=== PATIENT | male | born 1990 | race Caucasian/White ===

== ENCOUNTER 2021-05-03 17:14 | Emergency (ER) | payer OTHER ==
[2021-05-03] MEDS ORDERED: TETANUS & DIPHTHERIA TOX,ADULT 0.5 ML VIAL ONE (18:15)
[2021-05-03] MEDS ORDERED: LIDOCAINE 1% 20 ML MDV ONE (19:02)
--- NOTE | 2021-05-03 19:36 | ER ---
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 Coronavirus screen: Client denies travel out of the [place] in the last 14 days. Ebola Screen: No symptoms or risks identified at this time. Complicating Factors: There are no complicating factors for this patient. Initial Sepsis Screen: Does the patient meet any 2 criteria? No. Patient's initial sepsis screen is negative. Does the patient have a suspected source of infection? No. Patient's initial sepsis screen is negative. Risk Assessment: Do you want to hurt yourself or someone else? Patient reports no desire to harm self or others. Onset of symptoms was May 03, 2021. 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 - Social history:: Smoking status: Patient denies any tobacco usage or history of. Screenin:55 Abuse screen: Denies threats or abuse. Denies injuries from another. Nutritional tr6 screening: No deficits noted. Tuberculosis screening: No symptoms or risk factors identified. Fall Risk None identified. Assessment: 17:54 General: Appears in no apparent distress. comfortable, Behavior is calm, cooperative, tr6 appropriate for age. Pain:. Neuro: No deficits noted. Cardiovascular: No deficits noted. Respiratory: No deficits noted. GI: No deficits noted. : No deficits noted. EENT: No deficits noted. Derm: No deficits noted. Musculoskeletal: No deficits noted. Injury Description: Laceration sustained to right hand. 19:58 Injury Description: Laceration is jagged, 2.6 to 7.5 cm long, not bleeding. [id number] Vital Signs: 17:38 BP 133 / 75; Pulse 66; Resp 18; Temp 98.5; Pulse Ox 98% on R/A; Weight 65.77 kg; Height ph 5 ft. 11 in. (180.34 cm); Pain 2/10; 17:38 Body Mass Index 20.22 (65.77 kg, 180.34 cm) ED Course: 17:23 Patient arrived in ED. as 17:39 Triage completed. ph 17:39 Arm band placed on Patient placed in waiting room, Patient notified of wait time. 17:51 [facility] 17:51 Sylvester Crooks MD is Attending Physician. [facility] 17:51 Adele Salmon, DONNA is Primary Nurse. tr6 17:55 Resting quietly. Awaiting ED provider evaluation. tr6 17:55 Patient has correct armband on for positive identification. Bed in low position. Call tr6 light in reach. Side rails up X 1. Door closed. Noise minimized. Visitors limited. Lights dimmed. Moved to private room. 17:55 No provider procedures requiring assistance completed. tr6 19:58 Patient did not have IV access during this emergency room visit. 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 Exp: tr6 01/05/2023. Lot #: [id number]. } Route: IM; Site: left deltoid; 19:16 Follow up: Response: No adverse reaction [facility] 18:47 Drug: Lidocaine (1 %) 20 ml {Note: adminitered by MARTÍNEZ Munoz.} Volume: 20 ml; tr6 Route: Infiltration; Outcome: 19:36 Discharge ordered by . [facility] 19:57 Discharged to home ambulatory, with family. [facility] 19:57 Condition: good 19:57 Discharge instructions given to patient, family, Instructed on discharge instructions, follow up and referral plans. wound care, Demonstrated understanding of instructions, follow-up care, wound care. 19:58 Patient left the ED. [facility] Signatures: Carl Munoz PA PA jmm Martinez, Amelia as Hall, Patricia, RN RN Werner Shultz RN RN [facility] Adele Salmon, DONNA RN tr
--- NOTE | 2021-05-03 19:36 | EDPHYS ---
Physician Documentation [facility] Name: Yaakov Lomeli Age: 31 yrs Sex: Male : 1990 Arrival Date: 05/03/2021 Time: 17:23 Bed 15 Private MD: ED Physician Sylvester Crooks HPI: 05/03 18:20 This 31 yrs old Male presents to ER via Ambulatory with complaints of jmm Laceration To Hand. 18:20 The patient has a laceration related to: working, occurred at work, and there are no jmm complicating factors. The injury was accidental. Onset: The symptoms/episode began/occurred acutely. It is unknown whether or not the patient has had similar symptoms in the past. Patient states cutting his left hand while at work. Denies other injury. Patient is not UTD on tetanus immunizations. . 19:33 The laceration(s) is(are) located on the left hand. 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 - Social history:: Smoking status: Patient denies any tobacco usage or history of. ROS: 18:20 Constitutional: Negative for fever, chills, and weight loss, Cardiovascular: Negative jmm for chest pain, palpitations, and edema, Respiratory: Negative for shortness of breath, cough, wheezing, and pleuritic chest pain. 18:20 Skin: Positive for laceration(s). 18:20 All other systems are negative. Exam: 18:20 Constitutional: This is a well developed, well nourished patient who is awake, alert, jmm and in no acute distress. Head/Face: atraumatic. Eyes: EOMI, no conjunctival erythema appreciated ENT: Moist Mucus Membranes Neck: Trachea midline, Supple Chest/axilla: Normal chest wall appearance and motion. Cardiovascular: Regular rate and rhythm. No edema appreciated Respiratory: Normal respirations, no respiratory distress appreciated Abdomen/GI: Non distended, soft Back: Normal ROM 18:20 Musculoskeletal/extremity: FROM appreciated to the right hand, < 2 sec dist cap refill, compartments are soft, NVI. 18:20 Skin: 3 cm laceration noted to the palmar surface of the right hand. 18:20 Neuro: Orientation: is normal, Mentation: is normal, Memory: is normal. 18:20 Psych: Behavior/mood is pleasant, cooperative. Vital Signs: 17:38 BP 133 / 75; Pulse 66; Resp 18; Temp 98.5; Pulse Ox 98% on R/A; Weight 65.77 kg; Height ph 5 ft. 11 in. (180.34 cm); Pain 2/10; 17:38 Body Mass Index 20.22 (65.77 kg, 180.34 cm) ph Laceration: 19:33 Wound Repair of 3cm ( 1.2in ) subcutaneous laceration to left hand. Distal jmm neuro/vascular/tendon intact. Anesthesia: Local anesthetic administered with 3 mls of 1% lidocaine. Wound prep: Moderate cleansing with betadine by me. Skin closed with 7 4-0 Prolene using simple sutures and sterile technique. Patient tolerated well. MDM: 17:52 Patient medically screened. [facility] 19:33 Data reviewed: vital signs, nurses notes. Counseling: I had a detailed discussion with [facility] the patient and/or guardian regarding: the historical points, exam findings, and any diagnostic results supporting the discharge/admit diagnosis, the need for outpatient follow up, to return to the emergency department if symptoms worsen or persist or if there are any questions or concerns that arise at home. ED course: Patient given wound infection return precautions. Patient understood and agrees with the plan of care. . 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 Exp: tr6 01/05/2023. Lot #: [id number]. } Route: IM; Site: left deltoid; 19:16 Follow up: Response: No adverse reaction [facility] 18:47 Drug: Lidocaine (1 %) 20 ml {Note: adminitered by MARTÍNEZ Munoz.} Volume: 20 ml; tr6 Route: Infiltration; Disposition: 05/04 07:30 Co-signature as Attending Physician, Sylvester Crooks MD I agree with the assessment and [facility] plan of care. Disposition Summary: 05/03/21 19:36 Discharge Ordered Location: Home [facility] Condition: Stable [facility] Diagnosis - Laceration without foreign body of left hand [facility] Followup: [facility] - With: Private Physician - When: 7 - 10 days - Reason: Recheck today's complaints, Continuance of care, Staple/Suture removal, Re-evaluation by your physician Discharge Instructions: - Discharge Summary Sheet m - Laceration Care, Adult [facility] Forms: - Medication Reconciliation Form [facility] - Thank You Letter karen - Antibiotic Education karenm - Prescription Opioid Use [facility] - Work release form jm Signatures: Sylvester Crooks MD MD cha Mickail, Joel, PA PA jm Yasmine Lopez RN RN Adele Salmon RN RN tr6 Werner Shultz RN jm8 Corrections: (The following items were deleted from the chart) 05/03 19:34 18:20 The laceration(s) is(are) located on the right hand, da [facility] 19:34 18:20 Patient states cutting his right hand while at work. Denies other injury. Patient da is not UTD on tetanus immunizations. . [facility]
[2021-05-03 20:12] VITALS: BP 133/75; TEMP 98.5; O2SAT 98
== END 2021-05-03 19:58 | disposition home or self-care (01) ==
LOC: ER 17:14
PROC: 0JQK0ZZ Repair Left Hand Subcutaneous Tissue and Fascia, Open Approach (ICD-10-PCS; principal; 2021-05-03)
DX: S61.412A Laceration without foreign body of left hand, initial encounter (principal); W45.8XXA Other foreign body or object entering through skin, initial encounter; Y92.89 Other specified places as the place of occurrence of the external cause; Y99.8 Other external cause status; Z23 Encounter for immunization
CPT/HCPCS: 90471; 90714; 99283